=== PATIENT | female | born 1990 | race Caucasian/White ===

== ENCOUNTER 2016-05-22 15:10 | Emergency (ER) | payer OTHER ==
--- NOTE | 2016-05-22 16:00 | DIAGNOSTIC IMAGING REPORT ---
PROCEDURE: XR CHEST 2 VIEW INDICATION: CHEST PAIN TECHNIQUE: PA and lateral views. COMPARISON: None. FINDINGS: Lungs are clear. Heart and mediastinum are normal. Thorax is normal. IMPRESSION: 1. Negative chest.
--- NOTE | 2016-05-22 16:18 | ED ORDER SUMMARY ---
..... Patient: CHAYO ADLER OrderSheet [facility] VisitID: [id number] [address] [place] [address] 25y, F Registration Date/Time: 05/22/2016 ORDER SHEET Weight: 69.8 kg (stated) Allergies: No Known Drug Allergy GENERAL ORDERS: Chest 2V Urgent (15:37 05/22/2016 HBivens A.R.N.P.) (Ack 15:44 Srini) (15:57 BRYANNAnebel R.N.) EKG - ER Stat (15:37 05/22/2016 HBivens A.R.N.P.) (Ack 15:44 Srini) (15:46 omanelli R.N.) MEDICATION ORDERS: IV FLUIDS: IV Saline Lock (15:45 05/22/2016 Isabela Elias.N. per protocol) (15:46 Iasbela R.N.) ORDER SHEET NOTES: [Electronically signed by Sunny Denney R.N. (16:48 05/22/2016)] [Electronically signed by Laura AntonioNJanuaryPJanuary (16:52 05/22/2016)] [Electronically locked/signed by Sunny Denney R.N. (16:48 05/22/2016)]
--- NOTE | 2016-05-22 16:18 | ED NURSING NOTES ---
Clinical Report - Nurses [facility] [place] [address] 05/22/2016 15:11 Patient: CHAYO ADLER TRIAGE Triage time 15:May 22 2016. Acuity: LEVEL 3. Chief Complaint: CHEST PAIN and DISCOMFORT. Alert. DERECK COMA SCORE: [place] Coma Scale: 15- eyes open spontaneously (4); best verbal response- oriented x 4 (5); best motor response- obeys commands (6). --15:38 Sunny Denney R.N. 15:29 05/22/16. BP: 137/65. HR: 91. RR: 16. O2 saturation: 98% on room air. Temp: 99.4 F (oral). Pain level now: 5/10. --15:38 Sunny Denney R.N. Weight: 69.8 kg stated. Height/Length: 69 inches Per Patient. BMI: 22.7. --15:31 Sunny Denney R.N. Medications None. --15:35 Sunny Denney R.N. Medication/allergy information source: the patient. --15:38 Sunny Denney R.N. Allergies No Known Drug Allergy. --15:35 Sunny Denney R.N. History Arrived by private vehicle. Historian: patient. Accompanied by spouse. Primary physician (Yohannes Bell, [place], [place]). ( Chest tightness starting this morning). This started today. She has had difficulty breathing and vomiting. Treatment LEAD SHIPPER: None. PAST MEDICAL HX: Negative. Immunizations: status is unknown. Confirmed . In 1st trimester. confirmed with urine test. SURGERY HX: No history of previous surgery. SOCIAL HX: Light tobacco smoker (cigarette)- less than 1/2 a pack per day. No drug use. No infectious disease exposure. ABUSE ASSESSMENT: No report of abuse. FALL RISK ASSESSMENT: Fall risk assessment completed. No fall risk identified. NUTRITIONAL RISK ASSESSMENT: The nutritional risk assessment revealed no deficiencies. FUNCTIONAL ASSESSMENT: Functional assessment: no impairments noted. LEARNING NEEDS ASSESSMENT: The learning needs assessment revealed no barriers. SKIN INTEGRITY ASSESSMENT: Skin integrity risk assessment completed. No skin integrity risk identified. --15:38 Sunny Denney R.N. Interventions ID band on patient. To treatment room. --15:38 Sunny Denney R.N. PHYSICAL ASSESSMENT Ambulatory to room. GENERAL / NEURO / PSYCH: Alert. Oriented X 4. HEENT: Mucous membranes are pink. RESPIRATORY: Chest nontender. Breath sounds within normal limits. CVS: Normal sinus rhythm noted. Heart sounds within normal limits. Pulses within normal limits. Capillary refill less than 2 seconds. GI / : Abdomen soft and nontender. EXTREMITIES: No lower extremity edema. SKIN: Skin is warm and dry. Normal skin turgor. --15:40 Sunny Denney R.N. NURSING PROGRESS NOTES Patient gowned. Reassurance given. Patient identifiers checked. Side rails up x 1. Bed placed in lowest position. Brakes of bed on. Patient placed in chair. Patient ready for evaluation- chart flagged and ED physician notified. --15:41 Sunny Denney R.N. 15:31 05/22/2016 Site #1 started via IV in the right forearm with an 20g angiocath, with aseptic technique and good blood return; one attempt. Blood drawn: rainbow set. Saline lock flushed with 10 mL saline. --15:46 Sunny Denney R.N. EKG time: (1540). EKG was performed by a tech and shown to the ASSISTANT REAL ESTATE MANAGER. --15:53 Zeinab Maurice. DISPOSITION / DISCHARGE 16:25 05/22/16. BP: 127/69. HR: 94. RR: 16. O2 saturation: 100% on room air. Temp: 98.6 F. Pain level now: 04/04. Additional comments: Chest discomfort. --16:44 Sunny Denney R.N. Departure time: 1630. --16:44 Sunny Denney R.N. 16:30. Condition at departure: improved. No learning barriers present. Discharge instructions provided and reviewed with the patient. Reviewed medication(s) (Tylenol or Ibuprofen per pkt instructions prn pain). Reviewed referral to family practice for followup. Reviewed need to stop smoking. Patient verbalized understanding. Written instructions provided in Turkmen. The patient was discharged by the physician. She was discharged home and accompanied by service unit operator oil well. She left the Emergency Department ambulatory and via private vehicle. Concert Pianist driving. --16:48 Sunny Denney R.N. Locked/Released at 05/22/2016 16:48 by Sunny Denney R.N.
--- NOTE | 2016-05-22 16:18 | ED CLINICAL REPORT ---
Clinical Report - Physicians/Mid Levels [facility] [address] [place] [address] 05/22/2016 15:11 Patient: CHAYO ADLER Time Seen: 1532; initial patient contact, initial documentation, patient care assumed. Arrived- By private vehicle. Historian- patient. HISTORY OF PRESENT ILLNESS Chief Complaint: CHEST PAIN and DISCOMFORT. It is described as tightness and it is described as located in the central chest area. No radiation. This started today and is still present. It was abrupt in onset and has been intermittent and waxing/waning. At its maximum, severity described as severe. When seen in the E.D., it was almost gone. Modifying factors- worsened by cough and deep breaths. Not relieved by anything. No nausea, vomiting or diaphoresis. She has had mild difficulty breathing at rest . There has been no dyspnea on exertion, orthopnea, paroxysmal nocturnal dyspnea or wheezing. No additional chest pain. Similar symptoms previously: None. Recent medical care: Not recently seen/assessed. REVIEW OF SYSTEMS No fever or cough. - 1st trimester. All systems otherwise negative, except as recorded above. PAST HISTORY Negative. SOCIAL HISTORY Light tobacco smoker. Occasional alcohol use. History of occasional drug use: marijuana. No recent travel. Is a local resident. She lives with spouse. FAMILY HISTORY History of heart disease. ADDITIONAL NOTES The nursing notes have been reviewed with agreement regarding the chief complaint, HPI, ROS, PMH and patient medications and allergies. PHYSICAL EXAM Vital Signs: 05/22/2016 15:29 BP: 137/65. HR: 91. RR: 16. O2 saturation: 98%. Temp: 99.4 F. Pain level now: 5/10. Have been reviewed as normal and appear to be correct. Appearance: Alert. Oriented X3. No acute distress. Eyes: Pupils equal, round and reactive to light. Eyes normal inspection. Neck: Normal inspection. Neck supple. CVS: Normal heart rate and rhythm. Heart sounds normal. Pulses normal. Respiratory: No respiratory distress. Chest tender. Chest pain reproducible with palpation of the costal cartilage, costochondral junction, sternum and anterior chest wall, with movement of the trunk and with deep breathing. Breath sounds normal. Back: Normal external inspection. Skin: Skin warm and dry. Normal skin color. No rash. Normal skin turgor. Extremities: Extremities exhibit normal ROM. No lower extremity edema. Neuro: Oriented X 3. No motor deficit. No sensory deficit. LABS, X-RAYS, AND EKG EKG: EKG time: (1540). No acute process. No acute ischemia. Normal EKG. Rate: 97. Normal EKG. The study has been interpreted contemporaneously by me (and dr maya). The EKG appears to be a good tracing. Interpretation time: 1540. Chest X-ray: Normal Chest X-Ray. (IMPRESSION: 1. Negative chest. Electronically Final signed by:Stiven Ramsey MD 05/22/2016 4:00:22 PM). The X-rays were interpreted by the radiologist and contemporaneously by me. Interpretation time: 16:14. PROGRESS AND PROCEDURES Patient counseled in person regarding the patient's stable condition, test results, normal exam, normal evaluation and diagnosis. 16:14. Differential Diagnosis: I considered muscle strain, costochondritis, myositis, pleurisy, myocardial infarction, intermediate coronary syndrome, unstable angina, angina, aortic dissection, mitral valve prolapse, pericarditis, palpitations, pulmonary embolism, pneumonia, lung cancer, gastroesophageal reflux disease, esophagitis and esophageal spasm as a possible cause of chest pain in this patient. This is a partial list of diagnoses considered. Above considerations are based on history, physical exam, reassessment, X-Ray data and EKG. Differential diagnosis was discussed with patient. Disposition: Discharged home in good and unchanged condition (16:14). Condition: good and stable. CLINICAL IMPRESSION Atypical chest pain .12 lead EKG performed. INSTRUCTIONS Warnings: GENERAL WARNINGS: Return or contact your physician immediately if your condition worsens or changes unexpectedly, if not improving as expected, or if other problems arise. SPECIFICALLY, return if you develop chest, neck, jaw, shoulder, arm, or back pain, difficulty breathing, a fluttering sensation in your chest, lightheadedness, fainting, excessive fatigue, or sudden sweating. Follow-up: Follow up with your doctor in about three days even if well. Call for an appointment. Summary of care provided to patient. Understanding of the discharge instructions verbalized by patient. (Electronically signed by Laura Antonio A.R.N.P. 05/22/2016 16:52)
--- NOTE | 2016-05-22 16:18 | ED NURSING NOTES ---
Clinical Report - Nurses [facility] [place] [address] 05/22/2016 15:11 Patient: CHAYO ADLER TRIAGE Triage time 15:May 22 2016. Acuity: LEVEL 3. Chief Complaint: CHEST PAIN and DISCOMFORT. Alert. DERECK COMA SCORE: Otley Coma Scale: 15- eyes open spontaneously (4); best verbal response- oriented x 4 (5); best motor response- obeys commands (6). --15:38 Sunny Denney R.N. 15:29 05/22/16. BP: 137/65. HR: 91. RR: 16. O2 saturation: 98% on room air. Temp: 99.4 F (oral). Pain level now: 5/10. --15:38 Sunny Denney R.N. Weight: 69.8 kg stated. Height/Length: 69 inches Per Patient. BMI: 22.7. --15:31 Sunny Denney R.N. Medications None. --15:35 Sunny Denney R.N. Medication/allergy information source: the patient. --15:38 Sunny Denney R.N. Allergies No Known Drug Allergy. --15:35 Sunny Denney R.N. History Arrived by private vehicle. Historian: patient. Accompanied by spouse. Primary physician (Yohannes Bell, [place], [place]). ( Chest tightness starting this morning). This started today. She has had difficulty breathing and vomiting. Treatment PIPE FITTER WELDING: None. PAST MEDICAL HX: Negative. Immunizations: status is unknown. Confirmed . In 1st trimester. confirmed with urine test. SURGERY HX: No history of previous surgery. SOCIAL HX: Light tobacco smoker (cigarette)- less than 1/2 a pack per day. No drug use. No infectious disease exposure. ABUSE ASSESSMENT: No report of abuse. FALL RISK ASSESSMENT: Fall risk assessment completed. No fall risk identified. NUTRITIONAL RISK ASSESSMENT: The nutritional risk assessment revealed no deficiencies. FUNCTIONAL ASSESSMENT: Functional assessment: no impairments noted. LEARNING NEEDS ASSESSMENT: The learning needs assessment revealed no barriers. SKIN INTEGRITY ASSESSMENT: Skin integrity risk assessment completed. No skin integrity risk identified. --15:38 Sunny Denney R.N. Interventions ID band on patient. To treatment room. --15:38 Sunny Denney R.N. PHYSICAL ASSESSMENT Ambulatory to room. GENERAL / NEURO / PSYCH: Alert. Oriented X 4. HEENT: Mucous membranes are pink. RESPIRATORY: Chest nontender. Breath sounds within normal limits. CVS: Normal sinus rhythm noted. Heart sounds within normal limits. Pulses within normal limits. Capillary refill less than 2 seconds. GI / : Abdomen soft and nontender. EXTREMITIES: No lower extremity edema. SKIN: Skin is warm and dry. Normal skin turgor. --15:40 Sunny Denney R.N. NURSING PROGRESS NOTES Patient gowned. Reassurance given. Patient identifiers checked. Side rails up x 1. Bed placed in lowest position. Brakes of bed on. Patient placed in chair. Patient ready for evaluation- chart flagged and ED physician notified. --15:41 Sunny Denney R.N. 15:31 05/22/2016 Site #1 started via IV in the right forearm with an 20g angiocath, with aseptic technique and good blood return; one attempt. Blood drawn: rainbow set. Saline lock flushed with 10 mL saline. --15:46 Sunny Denney R.N. EKG time: (1540). EKG was performed by a tech and shown to the SINTERING PRESS OPERATOR. --15:53 Zeinab Maurice. DISPOSITION / DISCHARGE 16:25 05/22/16. BP: 127/69. HR: 94. RR: 16. O2 saturation: 100% on room air. Temp: 98.6 F. Pain level now: 04/04. Additional comments: Chest discomfort. --16:44 Sunny Denney R.N. Departure time: 1630. --16:44 Sunny Denney R.N. 16:30. Condition at departure: improved. No learning barriers present. Discharge instructions provided and reviewed with the patient. Reviewed medication(s) (Tylenol or Ibuprofen per pkt instructions prn pain). Reviewed referral to family practice for followup. Reviewed need to stop smoking. Patient verbalized understanding. Written instructions provided in Swedish. The patient was discharged by the physician. She was discharged home and accompanied by pneumatic jacketer. She left the Emergency Department ambulatory and via private vehicle. Business Consultant driving. --16:48 Sunny Denney R.N. Locked/Released at 05/22/2016 16:48 by Sunny Denney R.N.
--- NOTE | 2016-05-22 16:18 | ED ORDER SUMMARY ---
..... Patient: CHAYO ADLER OrderSheet [facility] VisitID: [id number] [address] [place] [address] 25y, F Registration Date/Time: 05/22/2016 ORDER SHEET Weight: 69.8 kg (stated) Allergies: No Known Drug Allergy GENERAL ORDERS: Chest 2V Urgent (15:37 05/22/2016 HBivens A.R.N.P.) (Ack 15:44 Srini) (15:57 BRYANNAnebel R.N.) EKG - ER Stat (15:37 05/22/2016 HBivens A.R.N.P.) (Ack 15:44 Srini) (15:46 omanelli R.N.) MEDICATION ORDERS: IV FLUIDS: IV Saline Lock (15:45 05/22/2016 Isabela Elias.N. per protocol) (15:46 Isabela R.N.) ORDER SHEET NOTES: [Electronically signed by Sunny Denney R.N. (16:48 05/22/2016)] [Electronically signed by Laura AntonioNJanuaryPJanuary (16:52 05/22/2016)] [Electronically locked/signed by Sunny Denney R.N. (16:48 05/22/2016)]
--- NOTE | 2016-05-22 16:52 | ED MAR SUMMARY ---
..... Medication Administration Record [facility] [address] [place], [place] [id number] Patient: CHAYO ADLER Visit ID: [id number] 25y, F Weight: 69.8 kg Height/Length: 69 in BMI: 22.7 ALLERGIES: No Known Drug Allergy
--- NOTE | 2016-05-22 16:52 | ED DISCHARGE INSTRUCTIONS ---
Patient: CHAYO ADLER General Instructions [facility] VisitID: [id number] [address] [place] [address] 25y, F Registration Date/Time: 05/22/2016 Atypical chest pain .12 lead EKG performed. INSTRUCTIONS Warnings: GENERAL WARNINGS: Return or contact your physician immediately if your condition worsens or changes unexpectedly, if not improving as expected, or if other problems arise. SPECIFICALLY, return if you develop chest, neck, jaw, shoulder, arm, or back pain, difficulty breathing, a fluttering sensation in your chest, lightheadedness, fainting, excessive fatigue, or sudden sweating. Follow-up: Follow up with your doctor in about three days even if well. Call for an appointment. Summary of care provided to patient. Understanding of the discharge instructions verbalized by patient. ADDITIONAL INFORMATION Chest Pain, Noncardiac Based on your visit today, the exact cause of your chest pain is not certain. Your condition does not seem serious and your pain does not appear to be coming from your heart. However, sometimes the signs of a serious problem take more time to appear. Therefore, please watch for the warning signs listed below. Home Care: Rest today and avoid strenuous activity. Take any prescribed medicine as directed. Follow Up with your doctor or this facility as instructed or if you do not start to feel better within 24 hours. Get Prompt Medical Attention if any of the following occur: A change in the type of pain: if it feels different, becomes more severe, lasts longer, or begins to spread into your shoulder, arm, neck, jaw or back Shortness of breath or increased pain with breathing Cough with dark colored sputum (phlegm) or blood Weakness, dizziness, or fainting Fever of 100.4F (38C) or higher, or as directed by your healthcare provider Swelling, pain or redness in one leg Chest Pain, Uncertain Cause Chest pain can happen for a number of reasons. Sometimes the cause can not be determined. If yourcondition does not seem serious, and your pain does not appear to be coming from your heart, your doctor may recommend watching it closely. Sometimes the signs of a serious problem take more time to appear. Therefore, watch for the warning signs listed below. Home care After your visit, follow these recommendations: Rest today and avoid strenuous activity. Take any prescribed medicine as directed. Follow-up care Follow up with your doctor or this facility as instructed or if you do not start to feel better within 24 hours. Call 911 Get immediate medical attention if any of the following occur: A change in the type of pain: if it feels different, becomes more severe, lasts longer, or begins to spread into your shoulder, arm, neck, jaw or back Shortness of breath or increased pain with breathing Weakness, dizziness, or fainting Rapid heart beat Get prompt medical attention Call your doctor right away if any of the following occur: Cough with dark colored sputum (phlegm) or blood Fever of 100.4F(38C) or higher, or as directed by your health care provider Swelling, pain or redness in one leg You have been given the following additional information: Chest Pain, Noncardiac Chest Pain, Uncertain Cause (Electronically signed by Laura Antonio A.R.N.P. 05/22/2016 16:52)
--- NOTE | 2016-05-22 16:52 | ED MED RECONCILIATION SUMMARY ---
Patient: CHAYO ADLER Medication Reconciliation Report [facility] VisitID: [id number] [address] [place] [address] 25y, F Registration Date/Time: 05/22/2016 Weight: 69.8 kg Height/Length: 69 in. BMI: 22.7 ALLERGIES: No Known Drug Allergy The patient's Home Medications are listed below: NONE. The source(s) of the original Home Medication information: patient The following Medications were given to the patient in the Emergency Department: None. The following Medications were prescribed to the patient: None.
--- NOTE | 2016-05-22 16:52 | ED MED RECONCILIATION SUMMARY ---
Patient: CHAYO ADLER Medication Reconciliation Report [facility] VisitID: [id number] [address] [place] [address] 25y, F Registration Date/Time: 05/22/2016 Weight: 69.8 kg Height/Length: 69 in. BMI: 22.7 ALLERGIES: No Known Drug Allergy The patient's Home Medications are listed below: NONE. The source(s) of the original Home Medication information: patient The following Medications were given to the patient in the Emergency Department: None. The following Medications were prescribed to the patient: None.
--- NOTE | 2016-05-22 16:52 | ED MAR SUMMARY ---
..... Medication Administration Record [facility] [address] [place], [place] [id number] Patient: CHAYO ADLER Visit ID: [id number] 25y, F Weight: 69.8 kg Height/Length: 69 in BMI: 22.7 ALLERGIES: No Known Drug Allergy
== END 2016-05-22 16:30 | disposition home or self-care (01) ==
LOC: ED SRH 15:10
DX: O99.89 Other specified diseases and conditions complicating pregnancy, childbirth and the puerperium (principal); R07.89 Other chest pain; Z3A.00 Weeks of gestation of pregnancy not specified; F17.210 Nicotine dependence, cigarettes, uncomplicated